=== PATIENT | female | born 1980 | race Native Hawaiian/Other Pacific Islander ===

== ENCOUNTER 2016-08-08 11:31 | Outpatient (CLI) | payer OTHER | END 2016-08-08 13:00 | disposition home or self-care (01) | LOC: RAD 11:31 | DX: K56.0 Paralytic ileus (principal) ==

== ENCOUNTER 2018-06-15 17:15 | Outpatient (CLI) | payer OTHER | END 2018-06-15 21:05 | disposition home or self-care (01) | LOC: RAD 17:15 | DX: R11.2 Nausea with vomiting, unspecified (principal) ==

== ENCOUNTER 2018-10-08 16:15 | Outpatient (CLI) | payer OTHER | END 2018-10-08 23:08 | disposition home or self-care (01) | LOC: RAD 16:15 | DX: M62.838 Other muscle spasm (principal) ==

== ENCOUNTER 2019-12-02 15:25 | Outpatient (CLI) | payer OTHER | END 2019-12-02 23:17 | disposition home or self-care (01) | LOC: RAD 15:25 | DX: R05 Cough (principal) ==

== ENCOUNTER 2019-12-23 12:06 | Outpatient (CLI) | payer OTHER ==
[2019-12-23 13:15] LABS: POTASSIUM 3.9 mmol/L (3.6-5.2)
== END 2019-12-23 20:08 | disposition home or self-care (01) ==
LOC: CT 12:06 → LABW 12:06
PROVIDERS: Nurse Practitioner Family
DX: K43.9 Ventral hernia without obstruction or gangrene (principal); R10.30 Lower abdominal pain, unspecified
CPT/HCPCS: 80053; 82150; 83690; 86677; Q9963

== ENCOUNTER 2020-08-09 10:38 | Outpatient (CLI) | payer OTHER | END 2020-08-09 21:31 | disposition home or self-care (01) | LOC: RAD 10:38 | PROVIDERS: ATTEND Nurse Practitioner Family | DX: R14.0 Abdominal distension (gaseous) (principal) ==

== ENCOUNTER 2021-01-01 16:22 | Outpatient (CLI) | payer OTHER ==
[2021-01-01 16:57] LABS: POTASSIUM 3.3 mmol/L (3.6-5.2)
== END 2021-01-01 19:40 | disposition home or self-care (01) ==
LOC: LABW 16:22
PROVIDERS: ATTEND Nurse Practitioner Family
DX: R10.11 Right upper quadrant pain (principal)
CPT/HCPCS: 36415; 80053; 82150; 83690; 86318; Q9963

== ENCOUNTER 2021-02-11 17:01 | Emergency (ER) | payer OTHER ==
[~2021-02-11] VITALS: Ht 149.9 cm; Wt 46.7 kg
[2021-02-11 17:38] LABS: POTASSIUM 3.4 mmol/L (3.6-5.2)
[2021-02-11 17:40] LABS: PLATELET COUNT 356 K/uL (152-353)
[2021-02-11 19:16] VITALS: BP 145/85; TEMP 98.5
== END 2021-02-11 19:16 | disposition home or self-care (01) ==
LOC: ED 17:01
PROVIDERS: Hospitalist
DX: R10.12 Left upper quadrant pain (principal); K27.9 Peptic ulcer, site unspecified, unspecified as acute or chronic, without hemorrhage or perforation
CPT/HCPCS: 80053; 81000; 81025; 83690; 85027; 96365; 96375; 99284; J1885; J2405; Q9963

== ENCOUNTER 2021-02-12 16:45 | Observation (INO) | payer OTHER ==
[~2021-02-12] VITALS: Ht 149.9 cm; Wt 48.2 kg
[2021-02-12 18:09] VITALS: BP 148/93; TEMP 98.8; Ht 149.9 cm; Wt 48.2 kg
[2021-02-12 18:19] LABS: PLATELET COUNT 334 K/uL (152-353)
[2021-02-12 20:00] VITALS: BP 157/100; TEMP 98.8
[2021-02-12 20:36] LABS: POTASSIUM 3.7 mmol/L (3.6-5.2)
--- NOTE | 2021-02-12 21:48 | NUR ---
NOTIFIED DR. MEDINA OF CMP AND U/A RESULTS AT THIS TIME. WAS TOLD BY PHYSICIAN TO CONTINUE ON WITH CT SCAN. NO NEW ORDERS GIVEN AT THIS TIME.
[2021-02-13 00:03] VITALS: BP 154/87; TEMP 98.6
--- NOTE | 2021-02-13 01:24 | NUR ---
NOTIFIED DR. MEDINA OF PT'S CT ABDOMEN AND PELVIS W/ CONTRAST RESULTS WHICH CONCLUDED PT WAS "CONSISTENT WITH GASTRODUODENITIS". DR MEDINA ORDERED PROTONIX 40 MG IVP BID, ZOCEYN 3.375 G IVPB Q8H, AND A BLAND DIET. ORDERS SCANNED, NOTED AND CARRIED OUT AT THIS TIME.
[2021-02-13 04:00] VITALS: BP 114/61; TEMP 98.8
[2021-02-13 06:34] LABS: PLATELET COUNT 250 K/uL (152-353)
[2021-02-13 06:46] LABS: POTASSIUM 3.4 mmol/L (3.6-5.2)
[2021-02-13 08:00] VITALS: BP 144/86; TEMP 98.2
--- NOTE | 2021-02-13 09:04 | NUR ---
PT C/O ABD PAIN AT A 10 ON 0-10 PAIN SCALE. PRN PAIN MEDS GIVEN. SEE EMAR.
[2021-02-13 12:00] VITALS: BP 144/67; TEMP 98.5
--- NOTE | 2021-02-13 13:30 | NUR ---
C/O PAIN AT A 9 ON 0-10 PAIN SCALE. PRN PAIN MEDS GIVEN.
[2021-02-13 16:00] VITALS: BP 138/75; TEMP 98.6
--- NOTE | 2021-02-13 17:00 | NUR ---
PT RESTING COMFORTABLY AT THIS TIME. NO COMPLAINTS OR REQUESTS AT THE MOMENT. BED LOW AND LOCKED. SIDE RAILS UP X2. CALL LIGHT WITHIN REACH.
--- NOTE | 2021-02-13 18:35 | NUR ---
PT RESTING IN BED IN HF POSITION. NAD NOTED. NO COMPLAINTS OR REQUESTS AT THIS TIME. BED LOW AND LOCKED. SIDE RAILS UP X2. CALL LIGHT WITHIN REACH.
[2021-02-13 20:00] VITALS: BP 151/86; TEMP 98.8
--- NOTE | 2021-02-13 20:39 | NUR ---
PM MEDS GIVEN AT THIS TIME. PT. TOLERATED WELL. PT COMPLAINING OF LUQ PAIN AT THIS TIME AND PT GIVEN PRN TORADOL 15 MG. PT SITTING UP IN A HIGH FOWLERS POSITION WITH SIDE RAILS UP TIMES TWO WITH BED IN LOWEST POSIITON WITH CALL LIGHT WITHIN REACH. TELEMETRY AND IV SITE INTACT AND WORKING PROPERLY. NO OTHER CONCERNS OR NEEDS VOICED AT THIS TIME.
[2021-02-14] VITALS: BP 141/85; TEMP 98.3
--- NOTE | 2021-02-14 03:44 | NUR ---
Patient is on a Cottle diet plan and is 4'11" at 105.4 lbs. and BMI at 21.2 and is wnl's and is a 41 YOF, receives KCl, Zofran, Protonix, and other medications and RD reviewed all medications and labs. Curet every day smoker and has a diagnosis of generalized abdominal weakness, leukocytosis and patient failed outpatient treatment, history of GERD, PUD, Hernia and labs reveal WBC, MCV, RDW all elevated and those depressed are RBC, Hbg, Hct, MCHC, K, Ca, PO4, ASt, Alt, TP, Alb, lipase, and has had N/V and loss of appetite. IBW = 95+/-10 (85 o 105 lbs.) and kcal needs x 25 = 1100, x 30 = 1300, x 35 = 1500, x 0 = 1800 kcal/day, protein needs x .8 to 1.5 = 35 to 65 grams per day and fluids x 25 to 40 = 1100 to 1700 ml/cc per day. RD Recommendations: 1-Monitor labs 2-PT to work with the patient 3-OT to work with the patient 4-Add a MVI 5-Make sure hydrated 6-Increase fluids and add at least an extra cup of fluids with meals 8-Add a supplement with meals 9-Add an appetite stimualnt and d/c when eating >75% of meals 10-Add Protein-1 pcaket Beneprotein BID 11-Add plain yogurt with meals 12-Add a banana with 1-2 meals a day.
[2021-02-14 04:00] VITALS: BP 143/82; TEMP 98.5
--- NOTE | 2021-02-14 05:57 | NUR ---
PT COMPLAINING OF 7/10 AT THIS TIME TO LUQ REGION. PRN TORADOL 15 MG GIVEN AT THIS TIME.
[2021-02-14 08:00] VITALS: BP 142/84; TEMP 98.5
[2021-02-14 10:02] LABS: PLATELET COUNT 261 K/uL (152-353)
[2021-02-14 10:25] LABS: POTASSIUM 3.7 mmol/L (3.6-5.2)
--- NOTE | 2021-02-14 19:07 | NUR ---
PATIENT HAS STAYED IN BED ALL DAY EXCEPT TO GO TO BATHROOM. SHE ONLY COMPLAINED OF PAIN 1 TIME AND TORDAL WAS GIVEN. SHE STATES SHE RECEIVED SOME PAIN RELIEF. HAS BEEN IN ROOM MOST OF THE AFTERNOON. PATIENT READY TO GO HOME TO BE WITH SON. NURSE ALLOWED THE ANTIBIOTIC TO FINISH BEFORE IV WAS TAKEN OUT.
== END 2021-02-14 18:35 | disposition home or self-care (01) ==
LOC: MED/SURG 16:45
PROVIDERS: ADMIT Family Medicine; ATTEND Family Medicine
DX: K52.89 Other specified noninfective gastroenteritis and colitis (principal); R10.12 Left upper quadrant pain; E86.0 Dehydration; D72.828 Other elevated white blood cell count; R10.84 Generalized abdominal pain; R63.0 Anorexia
CPT/HCPCS: 36415; 36600; 80053; 81000; 82150; 82550; 82805; 83605; 83690; 83735; 84100; 84484; 85027; 87040; 87635; 96360; 96361; 96366; 96367; 96375; 99220; G0378; G0379; J1885; J1956; J2543; J3490; Q9963; U0003

== ENCOUNTER 2021-06-19 16:35 | Outpatient (CLI) | payer OTHER ==
[2021-06-19 17:10] LABS: POTASSIUM 3.3 mmol/L (3.6-5.2)
== END 2021-06-19 18:59 | disposition home or self-care (01) ==
LOC: CT 16:35
PROVIDERS: ATTEND Nurse Practitioner Family
DX: R10.84 Generalized abdominal pain (principal)
CPT/HCPCS: 36415; 80053; 82150; 83690; Q9963